=== PATIENT | male | born 1990 | race Caucasian/White ===

== ENCOUNTER 2018-11-14 18:46 | Emergency (ER) | payer MEDICAID ==
[~2018-11-14] VITALS: Ht 167.6 cm; Wt 73.0 kg
[2018-11-14 19:30] VITALS: BP 112/69
[2018-11-14] MEDS ORDERED: KETOROLAC 60MG/2ML VIAL IM ONE (20:00)
[2018-11-14] MEDS ORDERED: DEXAMETHASONE 10 MG/ML VIAL PO ONE (20:00)
[2018-11-14] MEDS ORDERED: IBUPROFEN 600MG TABLET PO ONE (20:15)
== END 2018-11-14 20:50 | disposition home or self-care (01) ==
LOC: ER 18:46
DX: T78.40XA Allergy, unspecified, initial encounter (principal); X58.XXXA Exposure to other specified factors, initial encounter
CPT/HCPCS: 99282; J1100; J1885; Z7610